=== PATIENT | female | born 1965 ===

== ENCOUNTER 2019-08-16 17:24 | Emergency (ER) | payer SELFPAY ==
[2019-08-16 17:45] VITALS: BP 107/53; PULSE 85; RESP 12; TEMP 37; O2SAT 96; BMI 25.8
[2019-08-16 17:50] VITALS: RESP 18
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
--- NOTE | 2019-08-16 19:29 | PC.NURSE ---
during pt rounds, pt re uesting pain meds for head, neck and L hip pain and xanax for anxiety
[2019-08-16 19:37] LABS: Add Urine Microscopic? NO
[2019-08-16 19:41] LABS: Bilirubin Urine Neg (NEGATIVE); Blood Urine Neg (Negative); Glucose Urine UA Norm (Normal); Ketones Urine Negative (Negative); Leukocyte Esterase Urine Negative (Negative); Nitrate Urine Negative (Negative); Protein Urine Neg (Negative); Specific Gravity, Urine 1.005 (1.005-1.030); Urine Appearance Clear (CLEAR); Urine Color Yellow (Yellow); Urobilinogen Urine Norm (Negative); pH Urine 7 (5-7)
[2019-08-16] MEDS: LORazepam 0.5 mg Tablet PO (20:07)
[2019-08-16] MEDS: HYDROcodone-acetaminophen 5-325 mg Tablet 1 TAB PO (20:08)
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
[2019-08-16 20:47] VITALS: BP 108/60; PULSE 71; RESP 18; O2SAT 97
== END 2019-08-16 20:50 | disposition home or self-care (01) ==
PROVIDERS: Emergency Provider Family Medicine
DX: Z04.1 Encounter for examination and observation following transport accident (principal); V53.5XXA Driver of pick-up truck or van injured in collision with car, pick-up truck or van in traffic accident, initial encounter
CPT/HCPCS: 12345; 70450; 72072; 72100; 72125; 72170; 81003; 99282; 99283

== ENCOUNTER → 2020-03-30 10:15 | Outpatient (BNVA) | payer BC, MEDICARE, OTHER, SELFPAY | PROVIDERS: PCP Nurse Practitioner Family; Referring Provider Nurse Practitioner Family; Visit Provider Specialist | DX: F43.10 Post-traumatic stress disorder, unspecified (principal); G43.711 Chronic migraine without aura, intractable, with status migrainosus; G31.84 Mild cognitive impairment of uncertain or unknown etiology | CPT/HCPCS: 99204 ==

== ENCOUNTER → 2020-06-09 15:15 | Outpatient (BNVA) | payer MEDICARE, OTHER, SELFPAY | PROVIDERS: PCP Nurse Practitioner Family; Visit Provider Specialist | DX: G31.84 Mild cognitive impairment of uncertain or unknown etiology (principal); G43.711 Chronic migraine without aura, intractable, with status migrainosus | CPT/HCPCS: 96116; 96372; 99214; J1885; J2405 ==